=== PATIENT | male | born 1950 | race Caucasian/White ===

== ENCOUNTER → 2024-02-22 11:21 | Outpatient (REF) | payer MEDICARE, SELFPAY ==
[2024-02-22 13:27] LABS: ALT (SGPT) 17 U/L (0-50); AST (SGOT) 21 U/L (17-59); Albumin 4.5 g/dl (3.5-5.0); Alkaline Phosphatase 119 U/L (38-126); Blood Urea Nitrogen 28 mg/dl (9-20); Calcium 9.5 mg/dl (8.4-10.2); Carbon Dioxide 22 mmol/L (22-30); Chloride 104 mmol/L (98-107); Glucose 120 mg/dl (70-99); HDL Cholesterol 63 mg/dl; LDL Cholesterol, Calculated 72 mg/dl; Potassium 4.9 mmol/L (3.5-5.1); Sodium 138 mmol/L (135-145); Total Bilirubin 0.8 mg/dl (0.2-1.3); Total Cholesterol 162 mg/dl (50-199); Total Protein 7.6 g/dl (6.3-8.2); Triglyceride 137 mg/dl (10-149); Very Low Density Lipoprotein 27 mg/dl (0-30); eGFR > 60.00
== END ==
LOC: REG 11:21
PROVIDERS: ATTENDING PHYSICIAN Family Medicine
DX: I12.9 Hypertensive chronic kidney disease with stage 1 through stage 4 chronic kidney disease, or unspecified chronic kidney disease (principal); E11.22 Type 2 diabetes mellitus with diabetic chronic kidney disease
CPT/HCPCS: 36415; 80053; 80061; 83036

== ENCOUNTER → 2024-05-31 09:27 | Outpatient (REF) | payer MEDICARE, SELFPAY ==
[2024-05-31 10:34] LABS: Microalbumin, Random Urine < 0.6 mg/dl (0.6-1.7)
== END ==
LOC: REG 09:27
PROVIDERS: ATTENDING PHYSICIAN Family Medicine
DX: I12.9 Hypertensive chronic kidney disease with stage 1 through stage 4 chronic kidney disease, or unspecified chronic kidney disease (principal); N18.31 Chronic kidney disease, stage 3a; E11.22 Type 2 diabetes mellitus with diabetic chronic kidney disease
CPT/HCPCS: 82043; 82570

== ENCOUNTER → 2024-06-18 06:19 | Day surgery (SDC) | payer MEDICARE, SELFPAY ==
[2024-06-18 07:35] LABS: Glucose - Point of Care 124 mg/dl (70-99)
== END ==
LOC: GI 06:19
PROVIDERS: ATTENDING PHYSICIAN Internal Medicine Gastroenterology; FAMILY PHYSICIAN Family Medicine
DX: Z12.11 Encounter for screening for malignant neoplasm of colon (principal); K57.30 Diverticulosis of large intestine without perforation or abscess without bleeding; K64.0 First degree hemorrhoids; D12.2 Benign neoplasm of ascending colon; D12.3 Benign neoplasm of transverse colon; D12.5 Benign neoplasm of sigmoid colon; Z86.0100 Personal history of colon polyps, unspecified
CPT/HCPCS: 45385; 45380; 88305; 82962

== ENCOUNTER → 2024-07-21 14:53 | Outpatient (REF) | payer MEDICARE, SELFPAY | LOC: HWRAD 14:53 | PROVIDERS: ATTENDING PHYSICIAN Nurse Practitioner Adult Health; FAMILY PHYSICIAN Family Medicine | DX: L03.90 Cellulitis, unspecified (principal) | CPT/HCPCS: 93970 ==

== ENCOUNTER → 2024-12-12 11:12 | Outpatient (REF) | payer MEDICARE, SELFPAY ==
[2024-12-12 12:38] LABS: ALT (SGPT) 38 U/L (0-50); AST (SGOT) 30 U/L (17-59); Albumin 3.9 g/dl (3.5-5.0); Alkaline Phosphatase 107 U/L (38-126); Blood Urea Nitrogen 27 mg/dl (9-20); Calcium 8.9 mg/dl (8.4-10.2); Carbon Dioxide 21 mmol/L (22-30); Chloride 104 mmol/L (98-107); Glucose 147 mg/dl (70-99); HDL Cholesterol 41 mg/dl; LDL Cholesterol, Calculated 56 mg/dl; Potassium 4.8 mmol/L (3.5-5.1); Sodium 139 mmol/L (135-145); Total Bilirubin 0.6 mg/dl (0.2-1.3); Total Cholesterol 119 mg/dl (50-199); Total Protein 7.1 g/dl (6.3-8.2); Triglyceride 114 mg/dl (10-149); Very Low Density Lipoprotein 22 mg/dl (0-30); eGFR 52.41
[2024-12-12 12:45] LABS: Glycohemoglobin (HgbA1c) 7.4 % (4.0-5.6)
== END ==
LOC: REG 11:12
PROVIDERS: ATTENDING PHYSICIAN Family Medicine
DX: I12.9 Hypertensive chronic kidney disease with stage 1 through stage 4 chronic kidney disease, or unspecified chronic kidney disease (principal)
CPT/HCPCS: 36415; 80053; 80061; 83036

== ENCOUNTER → 2025-05-16 10:05 | Outpatient (REF) | payer MEDICARE, SELFPAY ==
[2025-05-16 11:31] LABS: Microalb - Urine Creatinine 48.100 mg/dl
[2025-05-16 11:37] LABS: Blood Urea Nitrogen 24 mg/dl (9-20); Calcium 9.5 mg/dl (8.4-10.2); Carbon Dioxide 25 mmol/L (22-30); Chloride 105 mmol/L (98-107); Glucose 107 mg/dl (70-99); Potassium 4.8 mmol/L (3.5-5.1); Sodium 139 mmol/L (135-145); eGFR 52.09
[2025-05-16 11:46] LABS: Microalbumin, Random Urine < 0.6 mg/dl (0.6-1.7)
== END ==
LOC: REG 10:05
PROVIDERS: FAMILY PHYSICIAN Family Medicine
DX: I12.9 Hypertensive chronic kidney disease with stage 1 through stage 4 chronic kidney disease, or unspecified chronic kidney disease (principal)
CPT/HCPCS: 36415; 80048; 82043; 82570

== ENCOUNTER 2025-08-18 17:07 | Emergency (ER) | payer MEDICARE, SELFPAY ==
[2025-08-18 17:22] VITALS: BP 121/80
[2025-08-18 21:23] VITALS: BP 130/73
[2025-08-18 21:46] LABS: Hematocrit 41.4 % (39.0-52.0); Hemoglobin 13.4 g/dL (13.0-18.0); Mean Corp Hgb Conc. 32.4 g/dL (33.0-37.0); Mean Corpuscular Volume 93.5 fL (80.0-94.0); Nucleated Red Blood Cells % 0 % (-); Platelet Count 281 10^3/uL (130-400); Red Cell Dist. Width 13.2 % (11.5-14.5)
[2025-08-18 22:08] LABS: ALT (SGPT) 17 U/L (0-50); AST (SGOT) 23 U/L (17-59); Albumin 4.1 g/dl (3.5-5.0); Alkaline Phosphatase 94 U/L (38-126); Blood Urea Nitrogen 20 mg/dl (9-20); Calcium 8.9 mg/dl (8.4-10.2); Carbon Dioxide 25 mmol/L (22-30); Chloride 103 mmol/L (98-107); Glucose 114 mg/dl (70-99); Lipase 256 U/L (23-300); Potassium 4.7 mmol/L (3.5-5.1); Sodium 136 mmol/L (135-145); Total Protein 7.7 g/dl (6.3-8.2); eGFR 56.93
--- NOTE | 2025-08-18 22:23 | ED.GENMED ---
History of Present Illness
<Narinder Adrian DO, Resident - Last Filed: 08/19/25 00:43>
General
Chief Complaint: Bowel Problem
Source: patient
Exam Limitations: none
Time Seen by Provider: 08/18/25 21:56
Nursing documentation reviewed up to this point in time: agreed with
History of Present Illness
History of Present Illness:
Carlotta Ponce is a 75-year-old male with past medical history of DM, HTN, CAD, HLD, obesity and diverticulosis on colonoscopy 1 year ago who is presenting with constipation and left lower quadrant pain. Patient states that his last bowel was
approximately 4 days ago. Has tried stool softeners and laxatives for the past 2 days without success. Patient endorses being able to pass flatus. Also notes that 3 days ago (day after his last BM) started to have left lower quadrant pain.
This pain progressively worsened and peaked yesterday. Since yesterday, the pain has been at the same level. Pain is exacerbated with movement and coughing. Denies pain with bumps in the road on the way to the hospital. Also endorses
intermittent chills that last approximately 1 to 2 minutes and then subside. These come on approximately once every 2 hours. Otherwise denies fevers, nausea, vomiting, rectal pain, urinary symptoms, headaches, dizziness, chest pain, shortness of
breath, lower extremity edema.
Past History
<Narinder Adrian DO, Resident - Last Filed: 08/19/25 00:43>
Past History
ED Past Medical History: CAD, HTN, Hypercholesterolemia, NIDDM and Other (Pulmonary emboli)
ED Past Surgical History: Other (ENT)
Social History
Tobacco: Non-smoker
Alcohol: None
Drug: None
Personal:
Living: with family
Review of Systems
<Narinder Adrian DO, Resident - Last Filed: 08/19/25 00:43>
Review of Systems
Allergies reviewed?: Yes
All Other Systems: ROS reviewed and negative except as documented in HPI and ROS
Phy Exam
<Narinder Adrian DO, Resident - Last Filed: 08/19/25 00:43>
Physical Exam
Physical Exam:
General: well-developed, well-nourished male calmly speaking in full sentences, but appearing uncomfortable with movement
HEENT: normocephalic, atraumatic, sclera anicteric, EOMI
CV: RRR, no murmurs, rubs, or gallops.
Resp: Clear to auscultation bilaterally, no wheezing, rales, rhonchi
Abdomen: Soft and positive bowel sounds in all 4 quadrants. Trouble getting into bed secondary to pain. Exquisite tenderness in the left lower quadrant. Otherwise non-rigid abdomen without guarding or rebound tenderness. All other quadrants
nontender to palpation.
MSK: no clubbing, no cyanosis, no edema.
Neuro: AOX3, alert
Psych: Calm, normal affect.
Course
<Narinder Adrian DO, Resident - Last Filed: 08/19/25 00:43>
Orders/Labs/Results
Orders:
Orders
08/18/25 17:24
CR Obstruct Series W/pa Chest Urgent
Comment:
Reason For Exam: LLQ pain and constipation
08/18/25 21:38
Complete Blood Count/With Diff Urgent
Comprehensive Metabolic Panel Urgent
Lipase Urgent
08/18/25 22:31
Morphine Sulfate 1 mg IV NOW STA
08/18/25 22:33
CT Abd/pelvis W Iv Cont Urgent
Comment:
Reason For Exam: LLQ Pain
08/18/25 22:38
Acetaminophen [Tylenol] 1,000 mg PO NOW STA
08/19/25 00:42
Amoxicillin 875 mg/Clav 125 mg [Augmentin 875 mg/125 mg] 1 tablet PO NOW STA
Abnormal Lab Results
08/18/25
21:38
WBC 13.8 H 10^3/uL
(4.8-10.8)
RBC 4.43 L 10^6/uL
(4.70-6.10)
MCHC 32.4 L g/dL
(33.0-37.0)
Absolute Neuts (auto) 9.6 H 10^3/uL
(1.4-6.5)
Absolute Monos (auto) 1.0 H 10^3/uL
(0.1-0.6)
Glucose 114 H mg/dl
(70-99)
08/18/25 21:38
08/18/25 21:38
Vital Signs
Initial and Last Documented VS:
Initial Vital Signs
Temp Pulse Resp BP Pulse Ox
98.4 F 74 18 121/80 98
08/18/25 17:22 08/18/25 17:22 08/18/25 17:22 08/18/25 17:22 08/18/25 17:22
Last Documented Vital Signs
Temp Pulse Resp BP Pulse Ox
99.0 F 65 18 130/73 99
08/18/25 21:23 08/18/25 21:23 08/18/25 21:23 08/18/25 21:23 08/18/25 22:29
<Josette Norman, - Last Filed: 08/19/25 00:44>
Orders/Labs/Results
Orders:
Orders
08/18/25 17:24
CR Obstruct Series W/pa Chest Urgent
Comment:
Reason For Exam: LLQ pain and constipation
08/18/25 21:38
Complete Blood Count/With Diff Urgent
Comprehensive Metabolic Panel Urgent
Lipase Urgent
08/18/25 22:31
Morphine Sulfate 1 mg IV NOW STA
08/18/25 22:33
CT Abd/pelvis W Iv Cont Urgent
Comment:
Reason For Exam: LLQ Pain
08/18/25 22:38
Acetaminophen [Tylenol] 1,000 mg PO NOW STA
08/19/25 00:42
Amoxicillin 875 mg/Clav 125 mg [Augmentin 875 mg/125 mg] 1 tablet PO NOW STA
Abnormal Lab Results
08/18/25
21:38
WBC 13.8 H 10^3/uL
(4.8-10.8)
RBC 4.43 L 10^6/uL
(4.70-6.10)
MCHC 32.4 L g/dL
(33.0-37.0)
Absolute Neuts (auto) 9.6 H 10^3/uL
(1.4-6.5)
Absolute Monos (auto) 1.0 H 10^3/uL
(0.1-0.6)
Glucose 114 H mg/dl
(70-99)
08/18/25 21:38
08/18/25 21:38
Vital Signs
Initial and Last Documented VS:
Initial Vital Signs
Temp Pulse Resp BP Pulse Ox
98.4 F 74 18 121/80 98
08/18/25 17:22 08/18/25 17:22 08/18/25 17:22 08/18/25 17:22 08/18/25 17:22
Last Documented Vital Signs
Temp Pulse Resp BP Pulse Ox
99.0 F 65 18 130/73 99
08/18/25 21:23 08/18/25 21:23 08/18/25 21:23 08/18/25 21:23 08/18/25 22:29
<Narinder Adrian DO, Resident - Last Filed: 08/19/25 00:43>
MDM/Problems Addressed
Differential Diagnosis Includes:
Diverticulitis, Proctitis, Obstruction, Colitis, Constipation, Pancreatitis
MDM/Problems Addressed:
Carlotta Ponce is a 75-year-old male with past medical history of DM, HTN, CAD, HLD, obesity and diverticulosis on colonoscopy 1 year ago who is presenting with constipation x 4 days and left lower quadrant pain. Abdominal exam showing moderate
to severe tenderness of the left lower quadrant without rebound or rigidity. Additional pertinent history includes a history of Mounjaro use, previous colonoscopy showing diverticulosis. Clinical concern for diverticulitis given elevated white
blood cell count and left lower quadrant tenderness. will order CT abdomen pelvis to evaluate. Other possible differentials include colitis and obstruction which should be elucidated by the same study. Pancreatitis ruled out with a normal lipase.
CT scan showing mild uncomplicated diverticulitis in the sigmoid colon without abscess or free air. Incidentally, there is an enhancing exophytic right renal mass concerning for renal cell carcinoma.
Inpatient vs. outpatient management of uncomplicated diverticulitis discussed. Patient prefers outpatient management. Will discharge on Augmentin. Return precautions given.
Patient counseled to follow up with primary care provider regarding incidental finding of RCC.
<Narinder Adrian DO, Resident - Last Filed: 08/19/25 00:43>
*Pulse Oximetry
SaO2: 99
Oxygen Mode of Delivery: Room air
Patient hypoxic: no
*Critical Care Note
Total Time (30-74mins, 75-104mins- exclusive of procedures): Not Applicable
ED Attending Note
<Narinder Adrian DO, Resident - Last Filed: 08/19/25 00:43>
-
Portions of this chart may have been created with voice recognition software.� Occasional wrong word or��sound alike� substitutions may have occurred due to the inherent limitations of voice recognition software.
<Josette Norman DO - Last Filed: 08/19/25 00:44>
ED Attending Note
Patient seen and examined by attending physician: Yes
I performed the substantive portion of visit, reviewed & personally made and approve the management plan that is documented in note by myself or GRETCHEN.: Yes
I performed a history and physical exam of patient and discussed management with resident, I reviewed resident's note and agree with documented findings and plan of care.: Yes
ED Attending Note:
75-year-old male with history of A-fib on Xarelto diabetes presenting to the emergency department for lower abdominal pain and constipation. Patient reports last bowel movement was 4 days ago. 3 days ago started to have some left lower quadrant
abdominal pain which has been worsening since onset. Has been passing flatus, however no bowel movements. Has been using OTC stool softeners without relief. Patient is on Mounjaro, however denies any history of constipation from the medication,
no recent dosage increase. Reports surgical history of appendectomy. Denies any vomiting. Denies any fever. Vital signs on arrival are normal.
On exam, patient is resting comfortably, no acute distress. On abdominal exam, mild to moderate distention with focal tenderness to left lower quadrant with voluntary guarding, no rebound. Concern for acute diverticulitis versus bowel obstruction.
Possible uncomplicated constipation as well with some gas pain and distention. Given patient's comfort, plan for CT abdominal imaging. Labs obtained prior to my assessment, mild leukocytosis.
00:40 -patient CT is consistent with uncomplicated diverticulitis. Pain control with Tylenol, so feel patient is a candidate for outpatient oral antibiotic therapy. Patient would prefer to go home. However, strict return precautions were
communicated regarding patient's symptoms. In addition, CT showed incidental finding of a right renal mass concerning for renal cell carcinoma. Patient made aware of this finding and advised follow-up with his primary care doctor as well as
oncology. Will provide information for [facility]. Strict return precautions communicated to patient verbalized understanding
Discharge Plan
Departure
Prescriptions:
No Action
atorvastatin 40 MG tablet
40 mg PO DAILY
aspirin 325 MG tablet
325 mg PO QPM
lisinopril 20 MG tablet
20 mg PO DAILY
hydrochlorothiazide 25 MG tablet
25 mg PO DAILY
metoprolol succinate 50 MG tablet extended release 24 hr
50 mg PO DAILY
pioglitazone 30 MG tablet
30 mg PO DAILY
metformin 500 MG tablet extended release 24hr
1,000 mg PO BID
rivaroxaban [Xarelto] 20 MG tablet
20 mg PO DAILY
glipizide 2.5 MG tablet extended release 24hr
2.5 mg PO QPM
Referrals:
Jimi Ndiaye MD [Family Provider, Family Practice]
Interventions
Interventions:
*General Assessment Last Done: 08/18/25 17:22
*Neglect/Abuse Screening Last Done: 08/18/25 21:42
*ED COVID-19 Vaccine History Last Done: 08/18/25 17:22
[facility] Fall Risk Assessment Tool Last Done: 08/18/25 21:43
*Risk Screen - Suicide (C-SSRS) Last Done: 08/18/25 17:22
PY-Emjbgb-Rdhbcgetme Assessment Last Done: 08/18/25 21:40
Discharge Date and Time
Print Language: GHANAIAN
[2025-08-18] MEDS: TYLENOL 1000 MG PO (22:44)
[2025-08-18 22:45] VITALS: BMI 37.6
[2025-08-19] MEDS: AUGMENTIN 875 MG/125 MG 1 TABLET PO (01:27)
== END 2025-08-19 01:33 | disposition home or self-care (01) ==
LOC: EMR 17:07
PROVIDERS: Emergency Medicine; EMERGENCY PHYSICIAN Student in an Organized Health Care Education/Training Program; FAMILY PHYSICIAN Family Medicine
DX: K57.32 Diverticulitis of large intestine without perforation or abscess without bleeding (principal); N28.89 Other specified disorders of kidney and ureter; E11.9 Type 2 diabetes mellitus without complications; I25.10 Atherosclerotic heart disease of native coronary artery without angina pectoris; I48.91 Unspecified atrial fibrillation; I10 Essential (primary) hypertension; E78.00 Pure hypercholesterolemia, unspecified; E66.9 Obesity, unspecified; Z68.37 Body mass index [BMI] 37.0-37.9, adult; Z79.01 Long term (current) use of anticoagulants; Z79.84 Long term (current) use of oral hypoglycemic drugs; Z86.711 Personal history of pulmonary embolism
CPT/HCPCS: 99284; 74022; 74177; 80053; 83690; 85025; Q9967